=== PATIENT | female | born 1995 | race Two or more races ===

== ENCOUNTER 2019-01-10 08:24 | Observation (INO) | payer SELFPAY ==
[~2019-01-10] VITALS: Ht 160 cm; Wt 72.7 kg
[~2019-01-10 08:24] MED LIST: DOCU-131 PO; FERR325T18 PO; IBUP-1222 PO
[2019-01-10 08:48] VITALS: BP 106/73
[2019-01-10] MEDS ORDERED: ACYC-57 PO (09:53)
[2019-01-10] MEDS ORDERED: PREN-3 PO (10:01)
== END 2019-01-10 13:29 | disposition home or self-care (01) ==
LOC: LDOP 08:24 → LDIP 10:10
PROVIDERS: ADMIT Obstetrics & Gynecology; ATTEND Obstetrics & Gynecology
DX: O9A.213 Injury, poisoning and certain other consequences of external causes complicating pregnancy, third trimester (principal); Z3A.33 33 weeks gestation of pregnancy
CPT/HCPCS: 59025; 99211; G0378; G0463